=== PATIENT | male | born 1945 | race Caucasian/White ===

== ENCOUNTER 2022-04-16 16:28 | Emergency (ER) | payer OTHER ==
[~2022-04-16] VITALS: Ht 175.3 cm; Wt 81.7 kg
[2022-04-16] MEDS ORDERED: Norco 5-325 Ta1 EACH PO (17:16)
[2022-04-16] MEDS ORDERED: Cyclobenzaprine5 MG PO (17:17)
[2022-04-16] MEDS ORDERED: ZOCOR20 MG (17:18)
[2022-04-16] MEDS ORDERED: LISI5 PO (17:18)
[2022-04-16] MEDS ORDERED: HYDR1TAB94 PO (17:20)
== END 2022-04-16 17:18 | disposition home or self-care (01) ==
LOC: ER 16:28
DX: I10 Essential (primary) hypertension (principal); M54.30 Sciatica, unspecified side; Z79.899 Other long term (current) drug therapy
CPT/HCPCS: 99283

== ENCOUNTER 2022-12-27 15:48 | Emergency (ER) | payer OTHER ==
[~2022-12-27] VITALS: Ht 175.3 cm; Wt 77.1 kg
[~2022-12-27 15:48] MED LIST: Cyclobenzaprine5 MG PO; HYDR1TAB94 PO; LISI5 PO; Norco 5-325 Ta1 EACH PO; ZOCOR20 MG PO
[2022-12-27] MEDS ORDERED: B-12 COMPL1000 MCG/2 IM (16:08)
[2022-12-27] MEDS ORDERED: TIOT18 INH (16:08)
[2022-12-27 16:40] LABS: BASOPHILS ABSOLUTE AUTO 0.02 K/mm3 (0.00-0.23); BASOPHILS PERCENT AUTO 0 % (0-2); EOSINOPHILS ABSOLUTE AUTO 0.05 K/mm3 (0.00-0.68); EOSINOPHILS PERCENT AUTO 1 % (0-6); Hematocrit 40.4 % (37.0-53.0); Hemoglobin 13.5 g/dL (13.5-17.5); IMMATURE GRAN ABSOLUTE AUTO 0.01 K/mm3 (0.00-0.10); IMMATURE GRAN PERCENT AUTO 0 % (0-1); LYMPHOCYTES ABSOLUTE AUTO 2.01 K/mm3 (0.84-5.20); LYMPHOCYTES PERCENT AUTO 32 % (21-46); MONOCYTES ABSOLUTE AUTO 0.51 K/mm3 (0.16-1.47); MONOCYTES PERCENT AUTO 8 % (4-13); Mean Corpuscular HGB 31.4 pg (26.0-34.0); Mean Corpuscular HGB Conc 33.4 g/dL (31.5-36.5); Mean Corpuscular Volume 94 fL (80-100); Mean Platelet Volume 9.8 fL (9.1-12.4); NEUTROPHILS ABSOLUTE AUTO 3.69 K/mm3 (1.96-9.15); NEUTROPHILS PERCENT AUTO 59 % (41-73); Platelet Count 194 K/mm3 (150-400); RDW Coefficient Variation 13.8 % (11.7-14.2); RDW Standard Deviation 47.3 fL (35.1-46.3); White Blood Cell Count 6.29 K/mm3 (4.00-11.30)
[2022-12-27 16:51] LABS: Albumin, Blood 3.9 g/dL (3.4-5.0); Albumin/Globulin Ratio 1.2 (0.8-1.8); Bilirubin, Total 0.8 mg/dL (0.1-1.0); Bun/Creatinine Ratio 11.4 (12.0-20.0); Creatinine, Blood 0.96 mg/dL (0.60-1.20); Globulin, Blood 3.2 g/dL (2.2-4.0); Potassium, Blood 3.8 mmol/L (3.5-5.5); Total Protein, Blood 7.1 g/dL (6.4-8.2)
[2022-12-27 20:00] VITALS: BP 158/120
== END 2022-12-27 20:27 | disposition home or self-care (01) ==
LOC: ER 15:48
PROVIDERS: Emergency Medicine
DX: G45.9 Transient cerebral ischemic attack, unspecified (principal); Z88.8 Allergy status to other drugs, medicaments and biological substances; Z88.5 Allergy status to narcotic agent; Z79.899 Other long term (current) drug therapy; J44.9 Chronic obstructive pulmonary disease, unspecified; I10 Essential (primary) hypertension; F43.10 Post-traumatic stress disorder, unspecified
CPT/HCPCS: 70450; 70496; 70498; 80053; 85025; 93005; 93010; 99284-25; Q9967